=== PATIENT | female | born 1965 | race Caucasian/White ===

== ENCOUNTER 2024-06-29 13:29 | Emergency (ER) | payer MEDICAID ==
[~2024-06-29] VITALS: Ht 170.2 cm; Wt 72.0 kg
[2024-06-29 13:32] VITALS: BP 133/82; TEMP 98.8; O2SAT 98
[2024-06-29 13:34] VITALS: PULSE 80; RESP 12; O2SAT 99
[2024-06-29] MEDS ORDERED: KETOROLAC 15MG/ML VIAL IM ONE (15:30)
[2024-06-29] MEDS ORDERED: NAPR-1176 MT (15:39)
[2024-06-29] MEDS ORDERED: LIDO700A15 TP (15:39)
== END 2024-06-29 16:01 | disposition left against medical advice (07) ==
LOC: ER 13:29
DX: M54.9 Dorsalgia, unspecified (principal)
CPT/HCPCS: 99282